=== PATIENT | male | born 1980 ===

== ENCOUNTER → 2021-12-06 | Outpatient (CLI) | payer OTHER ==
--- NOTE | 2021-12-07 07:18 | RAD ---
3 views of right shoulder, 2 views right humerus, 3 views right elbow and 3 views right wrist dated . COMPARISON: None. INDICATION: Pain. FINDINGS: 3 views of the right shoulder show normal bony alignment. No displaced fracture. No periostitis or shaina ne destruction. Mild hypertrophic change of the AC joint. 2 views right humerus show intact humeral shaft. No displaced fracture. No periostitis or bone destru ction. 3 views of the right elbow show normal bony alignment. No displaced fracture. No fat pad elevation to suggest joint effusion. No acute osseous or articular abnormality. Small olecranon spur. 3 views the right wrist show normal bony alignment. No displaced fracture. No acute osseous or articu lar abnormality. IMPRESSION: No acute findings. Electronically signed by: Poli Camarena MD (12/07/2021 7:15 AM) [id number]
== END ==
LOC: RAD 17:00
PROVIDERS: ATTEND Nurse Practitioner Family
DX: S59.901A Unspecified injury of right elbow, initial encounter (principal); S49.91XA Unspecified injury of right shoulder and upper arm, initial encounter; M25.811 Other specified joint disorders, right shoulder; Z68.26 Body mass index [BMI] 26.0-26.9, adult; X58.XXXA Exposure to other specified factors, initial encounter; Y93.89 Activity, other specified; Y92.89 Other specified places as the place of occurrence of the external cause; Y99.8 Other external cause status
CPT/HCPCS: 73030; 73060; 73080; 73110